=== PATIENT | male | born 1960 | race African-American/Black ===

== ENCOUNTER 2018-09-02 05:05 | Inpatient (IN) | payer OTHER ==
[~2018-09-02] VITALS: Ht 172.7 cm; Wt 74.8 kg
[2018-09-02] MEDS ORDERED: SODIUM CHLORIDE 0.9% 1,000 ML IV ONE (07:28)
[2018-09-02] MEDS ORDERED: ONDANSETRON HCL 4MG/2ML INJ IV STA (07:28)
[2018-09-02] MEDS ORDERED: MORPHINE SULFATE 4 MG/ML CPJ (NOT FOR IM USE) IV STA (07:28)
[2018-09-02 07:55] LABS: BASOPHILS % 0.1 % (0.0-2.0); HEMATOCRIT. 46.9 % (42.0-52.0); MEAN CORPUSCULAR VOLUME 90.9 fL (80.0-94.0); MEAN PLATELET VOLUME 7.7 fl (7.4-10.4); MONOCYTES % 5.5 % (2.0-8.0); NEUTROPHILS % 83.4 % (40.0-76.0); PLATELET 287 x1000/uL (130-400); RED BLOOD CELL COUNT 5.16 mill/uL (4.7-6.1); RED CELL DISTRIBUTION WIDTH 13.7 % (11.6-14.6)
[2018-09-02 07:56] LABS: CLARITY URINE CLEAR (CLEAR); COLOR URINE YELLOW (YELLOW); KETONES URINE 2+ (NEGATIVE); LEUKOCYTE ESTERASE URINE NEGATIVE (NEGATIVE); NITRITE URINE NEGATIVE (NEGATIVE); OCCULT BLOOD URINE 2+ (NEGATIVE); PH URINE 5.5 (4.5-8.0); PROTEIN URINE TRACE (NEGATIVE); SPECIFIC GRAVITY URINE 1.024 (1.005-1.030); UROBILINOGEN URINE 0.2 E.U./dL (0.2-1.0)
[2018-09-02 07:57] LABS: CHLORIDE 103 mEq/L (98-107)
[2018-09-02] MEDS ORDERED: PANTOPRAZOLE SODIUM 40 MG/VIAL IV ONE (10:15)
[2018-09-02] MEDS ORDERED: POTASSIUM CHLORIDE 20MEQ TABLET SR PO ONE ×2 (13:15→17:45)
[2018-09-02] MEDS ORDERED: VISCOUS LIDOCAINE 2% 15 ML UDC MM STA (13:35)
[2018-09-02] MEDS ORDERED: MAGNESIUM/ALUMINUM HYDROXIDE/SIMETHICONE 30ML UDC PO ONE (13:45)
[2018-09-02 17:28] VITALS: BP 98/133
[2018-09-02] MEDS ORDERED: ONDANSETRON HCL 4MG/2ML INJ IV PRN (17:30)
[2018-09-02] MEDS ORDERED: CLONIDINE 0.1MG TABLET PO PRN (17:30)
[2018-09-02] MEDS ORDERED: LORAZEPAM 1MG TABLET PO PRN (17:30)
[2018-09-02] MEDS ORDERED: IPRATROPIUM/ALBUTEROL 0.5-3(2.5)MG/3ML NEB INH PRN (17:30)
[2018-09-02 17:35] VITALS: BP 133/73
[2018-09-02] MEDS ORDERED: INFLUENZA VIRUS VACCINE(AFLURIA) 0.5ML SYR IM ONE (18:00)
[2018-09-02] MEDS: PREGABALIN 50 MG CAPSULE PO SCH ×2 (18:10→21:17)
[2018-09-02] MEDS: DOCUSATE SODIUM 250MG CAPSULE PO SCH (18:11)
[2018-09-02] MEDS: ENOXAPARIN 40MG/0.4ML SYR SUBCUT SCH (18:11)
[2018-09-02] MEDS: HYDROCODONE/ACETAMINOPHEN 5/325MG TABLET PO PRN (18:12)
[2018-09-02 20:00] VITALS: BP 118/77
[2018-09-02] MEDS: TRAZODONE HCL 50MG TABLET PO SCH (21:17)
[2018-09-02] MEDS: METHOCARBAMOL 750MG TABLET PO SCH (21:21)
[2018-09-02] MEDS: TAMSULOSIN HCL 0.4MG SR CAPSULE PO SCH (21:21)
[2018-09-02] MEDS: LEVOFLOXACIN 500MG PREMIX 100 ML IV SCH (21:22)
[2018-09-02 22:00] VITALS: BP 104/59
[2018-09-02] MEDS ORDERED: GABA-290 PO (23:06)
[2018-09-02] MEDS ORDERED: TAMS-11 PO (23:06)
[2018-09-02] MEDS ORDERED: TRAZ-212 PO (23:06)
[2018-09-02] MEDS ORDERED: LOSA100T14 PO (23:06)
[2018-09-02] MEDS ORDERED: PANT40TA4 PO (23:06)
[2018-09-02] MEDS ORDERED: AMLO10TA80 PO (23:06)
[2018-09-02] MEDS ORDERED: METH-612 PO (23:08)
[2018-09-02] MEDS: DEXT 5%/0.45% NACL KCL 20MEQ/L 1,000 ML IV SCH (23:37)
[2018-09-03] VITALS: BP 111/68
[2018-09-03 04:00] VITALS: BP 123/75
[2018-09-03] MEDS: HYDROCODONE/ACETAMINOPHEN 5/325MG TABLET PO PRN ×4 (04:03→17:34)
[2018-09-03 04:34] LABS: CLARITY URINE CLEAR (CLEAR); COLOR URINE YELLOW (YELLOW); KETONES URINE TRACE (NEGATIVE); LEUKOCYTE ESTERASE URINE NEGATIVE (NEGATIVE); NITRITE URINE NEGATIVE (NEGATIVE); OCCULT BLOOD URINE 1+ (NEGATIVE); PH URINE 5.5 (4.5-8.0); PROTEIN URINE NEGATIVE (NEGATIVE); SPECIFIC GRAVITY URINE 1.029 (1.005-1.030); UROBILINOGEN URINE 0.2 E.U./dL (0.2-1.0)
[2018-09-03 04:54] LABS: *AMPHETAMINES SCREEN URINE NEGATIVE (NEGATIVE); *BARBITURATES SCREEN URINE NEGATIVE (NEGATIVE); *BENZODIAZEPINES SCREEN URINE PRESUMTIVE POSITIVE (NEGATIVE); *COCAINE SCREEN URINE NEGATIVE (NEGATIVE); CANNABINOID URINE SCREEN PRESUMTIVE POSITIVE (NEGATIVE); METHADONE URINE SCREEN NEGATIVE (NEGATIVE); OPIATES URINE SCREEN PRESUMTIVE POSITIVE (NEGATIVE); PHENCYCLIDINE URINE SCREEN NEGATIVE (NEGATIVE)
[2018-09-03] MEDS: METHOCARBAMOL 750MG TABLET PO SCH ×3 (06:58→21:03)
[2018-09-03] MEDS: DEXT 5%/0.45% NACL KCL 20MEQ/L 1,000 ML IV SCH ×2 (07:05→21:02)
[2018-09-03 08:00] VITALS: BP 119/83
[2018-09-03] MEDS: PREGABALIN 50 MG CAPSULE PO SCH ×2 (08:00→21:03)
[2018-09-03] MEDS: TAMSULOSIN HCL 0.4MG SR CAPSULE PO SCH (08:00)
[2018-09-03] MEDS: AMLODIPINE 5MG TABLET PO SCH (08:01)
[2018-09-03] MEDS: POTASSIUM CHLORIDE 20MEQ TABLET SR PO SCH (08:01)
[2018-09-03] MEDS: LOSARTAN POTASSIUM 25 MG TABLET PO SCH (08:01)
[2018-09-03] MEDS: DOCUSATE SODIUM 250MG CAPSULE PO SCH (08:01)
[2018-09-03 08:04] LABS: BASOPHILS % 0.2 % (0.0-2.0); EOSINOPHILS % 0.3 % (0.0-5.0); HEMATOCRIT. 40.9 % (42.0-52.0); HEMOGLOBIN. 14.3 g/dL (14.0-18.0); LYMPHOCYTES % 30.6 % (20.0-50.0); MEAN CORPUSCULAR HEMOGLOBIN 31.6 pg (28.0-32.0); MEAN CORPUSCULAR VOLUME 90.5 fL (80.0-94.0); MEAN PLATELET VOLUME 7.4 fl (7.4-10.4); NEUTROPHILS % 58.9 % (40.0-76.0); PLATELET 234 x1000/uL (130-400); RED BLOOD CELL COUNT 4.52 mill/uL (4.7-6.1); RED CELL DISTRIBUTION WIDTH 13.4 % (11.6-14.6)
[2018-09-03 09:18] LABS: CHLORIDE 106 mEq/L (98-107)
[2018-09-03 12:00] VITALS: BP 95/57
[2018-09-03 16:00] VITALS: BP 117/67
[2018-09-03] MEDS: ENOXAPARIN 40MG/0.4ML SYR SUBCUT SCH (18:44)
[2018-09-03 20:00] VITALS: BP 112/77
[2018-09-03] MEDS: TRAZODONE HCL 50MG TABLET PO SCH (21:03)
[2018-09-03] MEDS: LEVOFLOXACIN 500MG PREMIX 100 ML IV SCH (21:18)
[2018-09-04] VITALS: BP 118/75
[2018-09-04] MEDS: HYDROCODONE/ACETAMINOPHEN 5/325MG TABLET PO PRN ×3 (01:33→15:58)
[2018-09-04 04:00] VITALS: BP 106/62
[2018-09-04] MEDS: METHOCARBAMOL 750MG TABLET PO SCH ×3 (06:09→20:37)
[2018-09-04 07:25] LABS: BASOPHILS % 0.4 % (0.0-2.0); EOSINOPHILS % 1.1 % (0.0-5.0); HEMATOCRIT. 41.5 % (42.0-52.0); HEMOGLOBIN. 14.5 g/dL (14.0-18.0); LYMPHOCYTES % 39.4 % (20.0-50.0); MEAN CORPUSCULAR HEMOGLOBIN 31.5 pg (28.0-32.0); MEAN CORPUSCULAR VOLUME 90.3 fL (80.0-94.0); MEAN PLATELET VOLUME 7.4 fl (7.4-10.4); MONOCYTES % 9.6 % (2.0-8.0); NEUTROPHILS % 49.5 % (40.0-76.0); PLATELET 230 x1000/uL (130-400); RED BLOOD CELL COUNT 4.59 mill/uL (4.7-6.1); RED CELL DISTRIBUTION WIDTH 13.2 % (11.6-14.6)
[2018-09-04 07:31] LABS: CHLORIDE 104 mEq/L (98-107)
[2018-09-04 08:00] VITALS: BP 132/69
[2018-09-04] MEDS ORDERED: DEXAMETHASONE 4MG/ML 1ML VIAL IV SCH (08:15)
[2018-09-04] MEDS: POTASSIUM CHLORIDE 20MEQ TABLET SR PO SCH (08:46)
[2018-09-04] MEDS: DOCUSATE SODIUM 250MG CAPSULE PO SCH (08:46)
[2018-09-04] MEDS: TAMSULOSIN HCL 0.4MG SR CAPSULE PO SCH (08:46)
[2018-09-04] MEDS: PREGABALIN 50 MG CAPSULE PO SCH ×2 (08:47→20:38)
[2018-09-04] MEDS: LOSARTAN POTASSIUM 25 MG TABLET PO SCH (08:47)
[2018-09-04] MEDS: AMLODIPINE 5MG TABLET PO SCH (08:47)
[2018-09-04] MEDS ORDERED: PANTOPRAZOLE SODIUM 40 MG/VIAL IV SCH (09:00)
[2018-09-04 12:00] VITALS: BP 121/65
[2018-09-04] MEDS: DEXT 5%/0.45% NACL KCL 20MEQ/L 1,000 ML IV SCH ×2 (12:36→23:31)
[2018-09-04] MEDS: DEXAMETHASONE 4MG/ML 1ML VIAL IV SCH ×3 (12:36→23:31)
[2018-09-04] MEDS: ACETAMINOPHEN 325MG TABLET PO PRN ×2 (12:38→20:37)
[2018-09-04 16:00] VITALS: BP 116/61
[2018-09-04] MEDS: ENOXAPARIN 40MG/0.4ML SYR SUBCUT SCH (17:37)
[2018-09-04 20:00] VITALS: BP 107/65
[2018-09-04] MEDS ORDERED: LEVOFLOXACIN 500MG TABLET PO SCH (20:00)
[2018-09-04] MEDS: TRAZODONE HCL 50MG TABLET PO SCH (20:37)
[2018-09-05] VITALS: BP 110/66
[2018-09-05] MEDS: HYDROCODONE/ACETAMINOPHEN 5/325MG TABLET PO PRN (03:40)
[2018-09-05 04:00] VITALS: BP 118/72
[2018-09-05] MEDS: DEXAMETHASONE 4MG/ML 1ML VIAL IV SCH ×2 (05:44→11:35)
[2018-09-05] MEDS: METHOCARBAMOL 750MG TABLET PO SCH (05:44)
[2018-09-05 07:22] LABS: BASOPHILS % 0.3 % (0.0-2.0); HEMOGLOBIN. 15.7 g/dL (14.0-18.0); LYMPHOCYTES % 9.9 % (20.0-50.0); MEAN CORPUSCULAR HEMOGLOBIN 31.5 pg (28.0-32.0); MEAN CORPUSCULAR VOLUME 90.7 fL (80.0-94.0); MEAN PLATELET VOLUME 8.2 fl (7.4-10.4); MONOCYTES % 4.1 % (2.0-8.0); NEUTROPHILS % 85.7 % (40.0-76.0); PLATELET 236 x1000/uL (130-400); RED BLOOD CELL COUNT 4.96 mill/uL (4.7-6.1); RED CELL DISTRIBUTION WIDTH 13.5 % (11.6-14.6)
[2018-09-05 08:22] VITALS: BP 134/91
[2018-09-05 08:30] LABS: CHLORIDE 104 mEq/L (98-107)
[2018-09-05] MEDS: TAMSULOSIN HCL 0.4MG SR CAPSULE PO SCH (08:45)
[2018-09-05] MEDS: POTASSIUM CHLORIDE 20MEQ TABLET SR PO SCH (08:46)
[2018-09-05] MEDS: DOCUSATE SODIUM 250MG CAPSULE PO SCH (08:46)
[2018-09-05] MEDS: LOSARTAN POTASSIUM 25 MG TABLET PO SCH (08:47)
[2018-09-05] MEDS: AMLODIPINE 5MG TABLET PO SCH (08:47)
[2018-09-05] MEDS ORDERED: FAMOTIDINE 20MG TABLET PO SCH (09:00)
[2018-09-05] MEDS ORDERED: PREGABALIN 75MG CAPSULE PO SCH (09:00)
[2018-09-05 10:55] VITALS: BP 134/91
== END 2018-09-05 12:52 | disposition home or self-care (01) | DRG 552 ==
LOC: ER 06:26 → 7WST 13:59 → ENRESERV 14:30
PROVIDERS: ADMIT Internal Medicine Geriatric Medicine; ATTEND Internal Medicine Geriatric Medicine
DX: M54.16 Radiculopathy, lumbar region (principal); M48.061 Spinal stenosis, lumbar region without neurogenic claudication; E87.6 Hypokalemia; I10 Essential (primary) hypertension; G62.9 Polyneuropathy, unspecified; M51.16 Intervertebral disc disorders with radiculopathy, lumbar region; F19.10 Other psychoactive substance abuse, uncomplicated; G89.4 Chronic pain syndrome; Z85.46 Personal history of malignant neoplasm of prostate; Z79.899 Other long term (current) drug therapy; Z87.891 Personal history of nicotine dependence
CPT/HCPCS: 36415; 70551; 72148; 80048; 80305; 83036; 83735; 84484; 93306; 93970; 96361; 96374; 96375; 97116; 97162; 99291; C9113; J1100; J1650; J1956; J2270; J2405; J7030; J7040; J7050

== ENCOUNTER 2018-10-05 09:26 | Emergency (ER) | payer OTHER ==
[~2018-10-05] VITALS: Ht 172.7 cm; Wt 75.0 kg
[~2018-10-05 09:26] MED LIST: AMLO10TA80 PO; LOSA100T14 PO; METH-612 PO; PANT40TA4 PO; TAMS-11 PO; TRAZ-212 PO
[2018-10-05] MEDS ORDERED: SODIUM CHLORIDE 0.9% 1,000 ML IV ONE (10:22)
[2018-10-05] MEDS ORDERED: MORPHINE SULFATE 4 MG/ML CPJ (NOT FOR IM USE) IV STA (10:22)
[2018-10-05] MEDS ORDERED: FAMOTIDINE 20MG/2ML VIAL IV STA (10:22)
[2018-10-05] MEDS ORDERED: ONDANSETRON HCL 4MG/2ML INJ IV STA (10:22)
[2018-10-05 11:59] LABS: BASOPHILS % 0.5 % (0.0-2.0); EOSINOPHILS % 0.6 % (0.0-5.0); HEMATOCRIT. 46.4 % (42.0-52.0); HEMOGLOBIN. 16.1 g/dL (14.0-18.0); LYMPHOCYTES % 27.5 % (20.0-50.0); MEAN CORPUSCULAR HEMOGLOBIN 31.8 pg (28.0-32.0); MEAN CORPUSCULAR VOLUME 91.7 fL (80.0-94.0); MEAN PLATELET VOLUME 7.6 fl (7.4-10.4); MONOCYTES % 9.2 % (2.0-8.0); NEUTROPHILS % 62.2 % (40.0-76.0); PLATELET 281 x1000/uL (130-400); RED BLOOD CELL COUNT 5.05 mill/uL (4.7-6.1)
[2018-10-05 12:06] LABS: CHLORIDE 107 mEq/L (98-107)
[2018-10-05 12:06] LABS: CLARITY URINE CLEAR (CLEAR); COLOR URINE DARK YELLOW (YELLOW); KETONES URINE 2+ (NEGATIVE); LEUKOCYTE ESTERASE URINE NEGATIVE (NEGATIVE); NITRITE URINE NEGATIVE (NEGATIVE); OCCULT BLOOD URINE 2+ (NEGATIVE); PH URINE 5.5 (4.5-8.0); PROTEIN URINE TRACE (NEGATIVE); SPECIFIC GRAVITY URINE 1.028 (1.005-1.030)
[2018-10-05] MEDS ORDERED: IOHEXOL-300 100 ML BOTTLE ONE (15:18)
[2018-10-05 16:00] VITALS: BP 133/85
== END 2018-10-05 16:10 | disposition home or self-care (01) ==
LOC: ER 09:26
DX: R11.10 Vomiting, unspecified (principal); R31.29 Other microscopic hematuria; I10 Essential (primary) hypertension; K21.9 Gastro-esophageal reflux disease without esophagitis; Z85.46 Personal history of malignant neoplasm of prostate
CPT/HCPCS: 36415; 74177; 80053; 81003; 83605; 83690; 85025; 96361; 96374; 96375; 99284; J2270; J2405; J3490; J7030; Q9967